=== PATIENT | female | born 1970 | race Hispanic/Latino ===

== ENCOUNTER 2019-03-10 13:51 | Observation (INO) | payer BC ==
[~2019-03-10] VITALS: Ht 154.9 cm; Wt 76.7 kg
[2019-03-10 14:35] LABS: BASOPHILS % (AUTO) 0.8 % (0.0-5.0); EOSINOPHILS % (AUTO) 3.3 % (0.0-8.0); LYMPHOCYTES % (AUTO) 22.5 % (21.0-51.0); MEAN CORPUSCULAR HEMOGLOBIN 18.7 pg (27.0-33.0); MEAN CORPUSCULAR HGB CONC 29.7 g/dL (32.0-36.0); MONOCYTES % (AUTO) 7.4 % (3.0-13.0); NUCLEATED RED BLOOD CELLS 0.1 % (0.0-0.19); PLATELET COUNT (AUTO) 403 K/uL (130-400); RED BLOOD CELL COUNT(AUTO) 3.31 MIL/uL (4.00-5.50); RED CELL DISTRIBUTION WIDTH 19.9 % (11.0-15.5)
[2019-03-10 14:45] LABS: HEMATOCRIT 20.9 % (36-48)
[2019-03-10 14:46] LABS: CREATININE 0.7 mg/dL (0.5-1.5); POTASSIUM 3.4 mmol/L (3.5-5.1)
[2019-03-10 14:48] LABS: INR 0.97 (0.85-1.15); PARTIAL THROMBOPLASTIN TIME 22.4 SEC (26.3-35.5); PROTHROMBIN TIME 10.2 SEC (9.6-11.6)
[2019-03-10 14:51] LABS: ALBUMIN 3.6 g/dL (3.5-5.0); BILIRUBIN,TOTAL 0.3 mg/dL (0.2-1.0); TOTAL PROTEIN, SERUM 7.1 g/dL (6.0-8.3)
[2019-03-10 16:13] LABS: APPEARANCE,URINE Clear (CLEAR); BILIRUBIN,URINE Negative (NEGATIVE); COLOR,URINE Yellow (YELLOW); GLUCOSE, URINE (UA) Negative (NEGATIVE); KETONES,URINE Negative (NEGATIVE); LEUKOCYTE ESTERASE ,URINE Trace (NEGATIVE); NITRATE,URINE Negative (NEGATIVE); OCCULT BLOOD,URINE Nonhemolyzed Trace (NEGATIVE); PH,URINE 8.5 (5.0-8.0); PROTEIN,URINE Negative (NEGATIVE)
[2019-03-10 16:16] LABS: HCG,QUAL RESULT NEGATIVE (NEGATIVE)
[2019-03-10 16:30] LABS: BACTERIA,URINE Few /HPF (None Seen); RBC,URINE 0-1 /HPF (0-1); WBC,URINE 0-1 /HPF (0-1)
[2019-03-10] MEDS ORDERED: ACETAMINOPHEN EXTRA STRENGTH 500 MG TABLET ONE (17:30)
[2019-03-10] MEDS ORDERED: ACETAMINOPHEN 325 MG TAB PO PRN (19:15)
[2019-03-10] MEDS ORDERED: ONDANSETRON HCL 4 MG/2 ML VIAL IV PRN (19:15)
[2019-03-10] MEDS ORDERED: SODIUM CHLORIDE 0.9% 250 ML IV ONE (20:39)
[2019-03-10] MEDS ORDERED: FAMOTIDINE/PF 20 MG/2 ML VIAL IV SCH (21:00)
[2019-03-10] MEDS ORDERED: FAMOTIDINE/PF 20 MG/2 ML VIAL IV ONE (21:37)
--- NOTE | 2019-03-10 23:15 | NUR ---
Patient received from ED: Patient came in Via Stretcher with Blood transfusion of PRBC infusing. Patient assisted to the bathroom to void with scant bloody discharges and clear yellow urine. Plan of care discussed with patient verbalizes understanding.
[2019-03-10 23:20] VITALS: BP 154/89
[2019-03-10] MEDS: ACETAMINOPHEN 325 MG TAB PO PRN (23:59)
[2019-03-11 00:15] VITALS: BP 148/89
[2019-03-11] MEDS ORDERED: LOSA1TAB37 PO (00:29)
[2019-03-11 02:27] LABS: HEMATOCRIT 21.5 % (36-48)
[2019-03-11 03:55] VITALS: BP 133/86
[2019-03-11] MEDS: SODIUM CHLORIDE 0.9% 1000ML 1,000 ML IV SCH ×2 (04:26→13:26)
[2019-03-11 07:50] VITALS: BP 139/77
--- NOTE | 2019-03-11 07:50 | NUR ---
PATIENT ASSESSED AND VITAL SIGNS WITHIN NORMAL LIMITS. WAS ASSISTED UP TO BATHROOM FOR C/O DIZZINESS DURING AMBULATION PRIOR TO SECOND UNIT OF BLOOD TRANSFUSION. TOLERATED ACTIVITY WELL AND DENIES ANY DIZZINESS. STATES FEELING BETTER AND PULSE AT THIS TIME IS 67BPM. PATIENT STABLE AND DENIES ANY FURTHER HEADACHE OR DIZZINESS WITH AMBULATION.
--- NOTE | 2019-03-11 08:15 | NUR ---
DR. MG CALLED AND MADE AWARE OF CONSULT AND LAST H/H NOT AVAILABLE. INFORMED OF TWO HOUR POST TRANSFUSION H/H AND INDICATED TO CALL AFTER RESULT IS AVAILABLE.
[2019-03-11 08:41] LABS: HEMATOCRIT 25.8 % (36-48)
--- NOTE | 2019-03-11 08:55 | NUR ---
DR. MG CALLED RE 2 HOUR H/H AND REPORTED A 8.3 HEMOGLOBIN AND WAS FINE WITH RESULTS. INDICATED WOULD BE IN LATER TO ASSESS PATIENT. PATIENT NOT BLEEDING THIS A.M. WHEN ASSISTED TO GO VOID.
[2019-03-11] MEDS ORDERED: POTASSIUM CHLORIDE 20 MEQ ERTAB PO SCH (11:00)
[2019-03-11 11:35] VITALS: BP 140/81
--- NOTE | 2019-03-11 14:26 | NUR ---
DR. MAGALY TORRES ROUNDED FOR SECOND TIME AND DISCHARGED PT ON IRON AND STOOL SOFTENER IF OKAY WITH OBGYN DOCTOR.
[2019-03-11 15:15] VITALS: BP 143/82
--- NOTE | 2019-03-11 16:15 | NUR ---
DR. MG ROUNDED AND DISCHARGED PATIENT TO HOME AND WILL FOLLOW UP IN HIS CLINIC ON THURSDAY, March AT 9:40AM. PATIENT STABLE AND WILL BE DISCHARGED ORDERED BY DR. MAGALY TORRES ON COLACE AND FERROUS SULFATE TWICE A DAY.
[2019-03-11] MEDS: ACETAMINOPHEN 325 MG TAB PO PRN (16:46)
--- NOTE | 2019-03-11 18:00 | NUR ---
DISCHARGE INSTRUCTIONS GIVEN AND SCRIPT FOR HOME MEDS GIVEN. PATIENT INSTRUCTED ON DOSAGE AND FREQUENCY.
--- NOTE | 2019-03-11 18:15 | NUR ---
PATIENT WAS TAKEN VIA W/C TO FAMILY [facility] AND WAS ACCOMPANIED BY HER SIGNIFICANT OTHER. PATIENT SHOWERED AND DENIES ANY FURTHER DIZZINESS. REINFORCED NEED TO FOLLOW UP WITH DR. MG ON THURSDAY AT 9:40AM.
[2019-03-11] MEDS ORDERED: FERROUS SULFATE 325 MG TABLET.DR PO SCH (21:00)
== END 2019-03-11 18:15 | disposition home or self-care (01) ==
LOC: EDH 13:51 → EDHIP 19:06 → WSH 23:15
PROVIDERS: ADMIT Internal Medicine; ATTEND Internal Medicine
DX: N92.1 Excessive and frequent menstruation with irregular cycle (principal); D25.9 Leiomyoma of uterus, unspecified; D62 Acute posthemorrhagic anemia; I10 Essential (primary) hypertension; R42 Dizziness and giddiness; Z79.899 Other long term (current) drug therapy
CPT/HCPCS: 36415 ×2; 36430 ×2; 76856; 80053; 81001; 81025; 82550; 84484; 85014 ×2; 85018 ×2; 85025; 85610; 85730; 86850; 86900; 86901; 86922 ×2; 93005; 96361; 96374; 99283; A4600; G0378 ×18; J3490 ×2; J7030; P9016 ×2

== ENCOUNTER 2019-08-26 10:37 | Observation (INO) | payer BC ==
[~2019-08-26] VITALS: Ht 156.2 cm; Wt 75.7 kg
[~2019-08-26 10:37] MED LIST: LOSA1TAB37 PO
[2019-08-26 11:38] LABS: CREATININE 0.8 mg/dL (0.5-1.5); POTASSIUM 3.6 mmol/L (3.5-5.1)
[2019-08-26 11:43] LABS: ALBUMIN 3.6 g/dL (3.5-5.0); BILIRUBIN,TOTAL 0.3 mg/dL (0.2-1.0); TOTAL PROTEIN, SERUM 7.1 g/dL (6.0-8.3)
[2019-08-26 11:59] LABS: BASOPHILS % (AUTO) 0.7 % (0.0-5.0); EOSINOPHILS % (AUTO) 3.3 % (0.0-8.0); HEMATOCRIT 24.9 % (36-48); LYMPHOCYTES % (AUTO) 22.8 % (21.0-51.0); MEAN CORPUSCULAR HEMOGLOBIN 18.8 pg (27.0-33.0); MEAN CORPUSCULAR HGB CONC 27.3 g/dL (32.0-36.0); MEAN CORPUSCULAR VOLUME 68.8 fL (79-99); MONOCYTES % (AUTO) 5.7 % (3.0-13.0); NEUTROPHILS % (AUTO) 63.4 % (40.0-77.0); NUCLEATED RED BLOOD CELLS 1.2 % (0.0-0.19); PLATELET COUNT (AUTO) 416 K/uL (130-400); RED BLOOD CELL COUNT(AUTO) 3.62 MIL/uL (4.00-5.50); RED CELL DISTRIBUTION WIDTH 18.8 % (11.0-15.5); WHITE BLOOD COUNT (AUTO) 5.8 K/uL (4.8-10.8)
[2019-08-26] MEDS ORDERED: FERROUS SULFATE 325 MG TABLET.DR PO SCH (13:45)
[2019-08-26] MEDS ORDERED: ONDANSETRON HCL 4 MG/2 ML VIAL IV PRN (14:00)
[2019-08-26] MEDS ORDERED: ACETAMINOPHEN 325 MG TAB PO PRN (14:00)
[2019-08-26 14:15] LABS: % IRON SATURATION 12.8 % (22-44)
[2019-08-26] MEDS ORDERED: SODIUM CHLORIDE 0.9% 250 ML IV ONE (14:15)
[2019-08-26 16:43] VITALS: BP 155/77
[2019-08-26 19:20] VITALS: BP 148/89
--- NOTE | 2019-08-26 19:35 | NUR ---
DR. MG ROUNDED AT THIS TIME FOR CONSULT REQUESTED BY DR. CARBAJAL. PATIENT IS SUPPOSE TO FOLLOW UP AN OUTPATIENT IN HIS CLINIC IN 3 WEEKS TO SCHEDULE SURGERY. PATIENT IS TO CONTINUE TAKING IRON ORDER UNTIL THEN. HOSPITALIST TO BE NOTIFIED OF CONSULT DONE AND DISCHARGE ORDER GIVEN.
[2019-08-26] MEDS ORDERED: FERR325T22 PO (20:38)
[2019-08-26] MEDS ORDERED: FAMOTIDINE 20MG TAB 20 MG TAB PO SCH (21:00)
--- NOTE | 2019-08-26 21:00 | NUR ---
DISCHARGE INST. GIVEN, PT. VERBALIZED UNDERSTANDING.
--- NOTE | 2019-08-26 21:22 | NUR ---
PT. DISCHARGED HOME. TAKEN TO CAR VIA WC BY KATHY (PCP). NO VAGINAL BLEEDING NOTED, DENIED PAIN AND DISCOMFORT. FAMILY MEMBERS ACCOMPANIED PT.
[2019-08-27] MEDS ORDERED: FERROUS SULFATE 325 MG TABLET.DR PO SCH (09:00)
== END 2019-08-26 21:22 | disposition home or self-care (01) ==
LOC: EDH 10:37 → EDHIP 13:46 → WSH 16:45
PROVIDERS: ADMIT Family Medicine; ATTEND Family Medicine
DX: D62 Acute posthemorrhagic anemia (principal); D50.0 Iron deficiency anemia secondary to blood loss (chronic); D25.9 Leiomyoma of uterus, unspecified; N92.0 Excessive and frequent menstruation with regular cycle; I10 Essential (primary) hypertension; Z79.899 Other long term (current) drug therapy
CPT/HCPCS: 36415; 36430; 80053; 82728; 83540; 83550; 85014; 85018; 85025; 86850; 86900; 86901; 86922 ×2; 99284; G0378 ×6; J7030; P9016

== ENCOUNTER 2020-07-21 21:56 | Emergency (ER) | payer BC ==
[~2020-07-21 21:56] MED LIST changes: +IRON PO; +LISI40TA4 PO; -LOSA1TAB37 PO
[2020-07-21] MEDS ORDERED: CLONIDINE HCL 0.1 MG TABLET ONE (22:19)
[2020-07-21] MEDS ORDERED: LORAZEPAM 2 MG/ML 1 ML VIAL ONE (22:20)
[2020-07-21 22:21] LABS: BASOPHILS % (AUTO) 0.5 % (0.0-5.0); EOSINOPHILS % (AUTO) 3.4 % (0.0-8.0); HEMATOCRIT 41.3 % (36-48); MEAN CORPUSCULAR HEMOGLOBIN 27.6 pg (27.0-33.0); MEAN CORPUSCULAR HGB CONC 32.7 g/dL (32.0-36.0); MEAN CORPUSCULAR VOLUME 84.5 fL (79-99); NEUTROPHILS % (AUTO) 65.5 % (40.0-77.0); PLATELET COUNT (AUTO) 348 K/uL (130-400); RED BLOOD CELL COUNT(AUTO) 4.89 MIL/uL (4.00-5.50); WHITE BLOOD COUNT (AUTO) 8.6 K/uL (4.8-10.8)
[2020-07-21] MEDS ORDERED: NIFEDIPINE ER 30 MG TAB PO ONE (22:34)
[2020-07-21 22:38] LABS: CREATININE 0.9 mg/dL (0.5-1.5); POTASSIUM 3.7 mmol/L (3.5-5.1)
[2020-07-21 22:43] LABS: BILIRUBIN,TOTAL 0.3 mg/dL (0.2-1.0); TOTAL PROTEIN, SERUM 7.8 g/dL (6.0-8.3)
[2020-07-21 22:50] LABS: INR 1.1 (0.85-1.15); PARTIAL THROMBOPLASTIN TIME 29.7 SEC (26.3-35.5); PROTHROMBIN TIME 11.8 SEC (9.6-11.6)
== END 2020-07-21 23:55 | disposition home or self-care (01) ==
LOC: EDH 21:56
DX: I10 Essential (primary) hypertension (principal); F41.0 Panic disorder [episodic paroxysmal anxiety]; Z79.899 Other long term (current) drug therapy; Z98.890 Other specified postprocedural states
CPT/HCPCS: 36415; 71045; 80053; 82550; 84484; 85025; 85610; 85730; 93005; 96374; 99285; J2060

== ENCOUNTER 2021-08-10 23:34 | Emergency (ER) | payer BC ==
[~2021-08-10] VITALS: Ht 157.5 cm; Wt 79.4 kg
[~2021-08-10 23:34] MED LIST changes: -LISI40TA4 PO; +LISI40TA9 PO
[2021-08-11] MEDS ORDERED: DiphenhydrAMINE HCL 50 MG/ML VIAL IV ONE (02:00)
[2021-08-11] MEDS ORDERED: KETOROLAC 30MG VIAL (30MG/ML) IV ONE (02:00)
[2021-08-11] MEDS ORDERED: 0.9%NACL 1000ML 1,000 ML IV ONE (02:00)
[2021-08-11] MEDS ORDERED: PROCHLORPERAZINE 10MG/2ML INJ IV ONE (02:00)
[2021-08-11 03:39] VITALS: BP 120/73
== END 2021-08-11 04:22 | disposition home or self-care (01) ==
LOC: EDH 23:34
DX: R51.9 Headache, unspecified (principal); R11.0 Nausea; I10 Essential (primary) hypertension; Z79.1 Long term (current) use of non-steroidal anti-inflammatories (NSAID); Z79.899 Other long term (current) drug therapy
CPT/HCPCS: 96361 ×2; 96374; 96375; 99284; J0780; J1200; J1885; J7030

== ENCOUNTER 2021-08-31 15:06 | Observation (INO) | payer BC ==
[~2021-08-31] VITALS: Ht 157.5 cm; Wt 82.3 kg
[2021-08-31] MEDS ORDERED: ASPIRIN 325MG TAB ONE (15:18)
[2021-08-31] MEDS ORDERED: NITROGLYCERIN 1GM OINT 1 INCH/1GM TD ONE ×2 (15:18→15:30)
[2021-08-31 15:28] LABS: BASOPHILS % (AUTO) 0.6 % (0.0-5.0); EOSINOPHILS % (AUTO) 3.3 % (0.0-8.0); HEMATOCRIT 40.3 % (36-48); LYMPHOCYTES % (AUTO) 21.7 % (21.0-51.0); MEAN CORPUSCULAR HEMOGLOBIN 28.2 pg (27.0-33.0); MEAN CORPUSCULAR HGB CONC 33.7 g/dL (32.0-36.0); MEAN CORPUSCULAR VOLUME 83.4 fL (79-99); MONOCYTES % (AUTO) 5.8 % (3.0-13.0); NEUTROPHILS % (AUTO) 67.7 % (40.0-77.0); PLATELET COUNT (AUTO) 316 K/uL (130-400); RED BLOOD CELL COUNT(AUTO) 4.83 MIL/uL (4.00-5.50); RED CELL DISTRIBUTION WIDTH 12.8 % (11.0-15.5)
[2021-08-31] MEDS ORDERED: LORAZEPAM 2 MG/ML 1 ML VIAL IVP ONE (15:30)
[2021-08-31] MEDS ORDERED: NITROGLYCERIN 0.4 MG SL TAB SL PRN ×2 (15:30→18:30)
[2021-08-31] MEDS ORDERED: ASPIRIN 325MG TAB PO ONE (15:30)
[2021-08-31 15:37] LABS: CREATININE 0.8 mg/dL (0.5-1.5); POTASSIUM 3.5 mmol/L (3.5-5.1)
[2021-08-31 15:47] LABS: ALBUMIN 3.9 g/dL (3.5-5.0); BILIRUBIN,TOTAL 0.4 mg/dL (0.2-1.0); TOTAL PROTEIN, SERUM 7.4 g/dL (6.0-8.3)
[2021-08-31] MEDS ORDERED: NITROGLYCERIN 1GM OINT 1 INCH/1GM TD SCH (18:30)
[2021-08-31] MEDS ORDERED: ONDANSETRON 4MG INJ IV PRN (18:30)
[2021-08-31] MEDS ORDERED: ACETAMINOPHEN 325 MG TAB PO PRN ×2 (18:30)
[2021-08-31 18:51] LABS: HEMOGLOBIN A1C 6.2 % (4.0-6.0)
[2021-08-31 18:52] LABS: CRP QUANTITATIVE 8.9 mg/L (0.00-9.0)
[2021-08-31] MEDS ORDERED: LORAZEPAM 2 MG/ML 1 ML VIAL ONE (18:56)
[2021-08-31 19:38] LABS: CHOLESTEROL 138 mg/dL (<200); HDL CHOLESTEROL 33 mg/dL (35-85); LDL DIRECT 86 mg/dL (0-99); TRIGLYCERIDES 182 mg/dL (30-200)
[2021-08-31 21:16] LABS: APPEARANCE,URINE Cloudy (CLEAR); BILIRUBIN,URINE Negative (NEGATIVE); COLOR,URINE Yellow (YELLOW); GLUCOSE, URINE (UA) Negative (NEGATIVE); KETONES,URINE Trace mg/dL (NEGATIVE); LEUKOCYTE ESTERASE ,URINE Trace (NEGATIVE); NITRATE,URINE Negative (NEGATIVE); OCCULT BLOOD,URINE Negative (NEGATIVE); PH,URINE 6.5 (5.0-8.0); PROTEIN,URINE Negative (NEGATIVE)
[2021-08-31 21:22] LABS: RBC,URINE 0-1 /HPF (0-1)
[2021-08-31 21:23] LABS: BACTERIA,URINE Few /HPF (None Seen); MUCUS,URINE Few LPF (None Seen); SQUAMOUS EPITHELIAL CELL,UR Moderate /HPF (0-2)
[2021-08-31 21:24] LABS: YEAST,URINE BUDDING Rare /HPF (None Seen)
[2021-08-31] MEDS: FAMOTIDINE 20MG TAB PO SCH (21:26)
[2021-08-31] MEDS: METOPROLOL TARTRATE 25 MG TAB PO SCH (21:26)
[2021-08-31] MEDS: NITROGLYCERIN 1GM OINT 1 INCH/1GM TD SCH (23:19)
[2021-09-01] VITALS: BP 155/83
[2021-09-01] MEDS ORDERED: IBUP-2070 PO (00:11)
[2021-09-01] MEDS ORDERED: METO25TA6 PO (00:11)
[2021-09-01] MEDS ORDERED: LOSA100T58 PO (00:11)
[2021-09-01] MEDS ORDERED: GUAI100S13 PO (00:11)
[2021-09-01 02:45] LABS: BASOPHILS % (AUTO) 0.7 % (0.0-5.0); EOSINOPHILS % (AUTO) 4.5 % (0.0-8.0); HEMATOCRIT 37.3 % (36-48); LYMPHOCYTES % (AUTO) 25.5 % (21.0-51.0); MEAN CORPUSCULAR HEMOGLOBIN 28.3 pg (27.0-33.0); MEAN CORPUSCULAR HGB CONC 32.7 g/dL (32.0-36.0); MEAN CORPUSCULAR VOLUME 86.5 fL (79-99); MONOCYTES % (AUTO) 7.2 % (3.0-13.0); NEUTROPHILS % (AUTO) 61.2 % (40.0-77.0); PLATELET COUNT (AUTO) 263 K/uL (130-400); RED BLOOD CELL COUNT(AUTO) 4.31 MIL/uL (4.00-5.50); RED CELL DISTRIBUTION WIDTH 12.6 % (11.0-15.5); WHITE BLOOD COUNT (AUTO) 7.5 K/uL (4.8-10.8)
[2021-09-01 04:00] VITALS: BP 155/86
[2021-09-01] MEDS: NITROGLYCERIN 1GM OINT 1 INCH/1GM TD SCH (06:53)
[2021-09-01] MEDS ORDERED: GUAIFENESIN SUGAR-FREE 100 MG/5 ML UDCUP PO PRN (07:30)
[2021-09-01] MEDS ORDERED: IBUPROFEN 600 MG TABLET PO SCH (07:30)
[2021-09-01] MEDS: METOPROLOL TARTRATE 25 MG TAB PO SCH (08:53)
[2021-09-01] MEDS: FAMOTIDINE 20MG TAB PO SCH (08:53)
[2021-09-01] MEDS ORDERED: ENOXAPARIN SODIUM 30 MG/0.3 ML SQ SCH (09:00)
[2021-09-01] MEDS ORDERED: LOSARTAN 100 MG TABLET PO SCH (09:00)
[2021-09-01 09:12] VITALS: BP 127/74
[2021-09-01] MEDS ORDERED: METOPROLOL TARTRATE 25 MG TAB PO SCH (21:00)
== END 2021-09-01 10:53 | disposition home or self-care (01) ==
LOC: EDH 15:06 → EDHIP 18:17 → 4BH 23:01
PROVIDERS: ADMIT Hospitalist; ATTEND Hospitalist
DX: M94.0 Chondrocostal junction syndrome [Tietze] (principal); R07.89 Other chest pain; F41.9 Anxiety disorder, unspecified; I10 Essential (primary) hypertension; E66.9 Obesity, unspecified; R79.89 Other specified abnormal findings of blood chemistry; R73.03 Prediabetes; Z68.34 Body mass index [BMI] 34.0-34.9, adult; Z90.710 Acquired absence of both cervix and uterus; Z79.899 Other long term (current) drug therapy
CPT/HCPCS: 36415 ×2; 71045; 80053; 80061; 81001; 82550 ×3; 83036; 83874 ×2; 84484 ×3; 85025 ×2; 85651; 86140; 93005 ×2; 96372; 96374; 99284; G0378 ×17; J1650; J2060

== ENCOUNTER 2022-07-02 01:38 | Emergency (ER) | payer BC ==
[~2022-07-02 01:38] MED LIST changes: +GUAI100S13 PO; +IBUP-2070 PO; -IRON PO; -LISI40TA9 PO; +LOSA100T58 PO; +METO25TA6 PO
[2022-07-02] MEDS ORDERED: KETOROLAC 30MG VIAL (30MG/ML) ONE (01:44)
[2022-07-02] MEDS ORDERED: ONDANSETRON 4MG INJ ONE (01:44)
[2022-07-02 01:51] LABS: BASOPHILS % (AUTO) 0.5 % (0.0-5.0); EOSINOPHILS % (AUTO) 3.8 % (0.0-8.0); LYMPHOCYTES % (AUTO) 24.3 % (21.0-51.0); MEAN CORPUSCULAR HGB CONC 34.1 g/dL (32.0-36.0); MEAN CORPUSCULAR VOLUME 85.2 fL (79-99); MONOCYTES % (AUTO) 6.3 % (3.0-13.0); NEUTROPHILS % (AUTO) 64.7 % (40.0-77.0); PLATELET COUNT (AUTO) 278 K/uL (130-400); RED BLOOD CELL COUNT(AUTO) 4.58 MIL/uL (4.00-5.50); RED CELL DISTRIBUTION WIDTH 12.8 % (11.0-15.5); WHITE BLOOD COUNT (AUTO) 7.5 K/uL (4.8-10.8)
[2022-07-02 02:00] LABS: CREATININE 1.1 mg/dL (0.5-1.5); POTASSIUM 3.4 mmol/L (3.5-5.1)
[2022-07-02] MEDS ORDERED: ONDANSETRON 4MG INJ IVP ONE (02:00)
[2022-07-02] MEDS ORDERED: KETOROLAC 30MG VIAL (30MG/ML) IVP ONE (02:00)
[2022-07-02 02:05] LABS: ALBUMIN 3.9 g/dL (3.5-5.0); TOTAL PROTEIN, SERUM 7.7 g/dL (6.0-8.3)
[2022-07-02] MEDS ORDERED: SALS500T16 PO (02:54)
[2022-07-02 03:06] VITALS: BP 149/86
== END 2022-07-02 03:05 | disposition home or self-care (01) ==
LOC: EDH 01:38
DX: M94.0 Chondrocostal junction syndrome [Tietze] (principal); F41.9 Anxiety disorder, unspecified; I10 Essential (primary) hypertension; I49.8 Other specified cardiac arrhythmias; Z79.1 Long term (current) use of non-steroidal anti-inflammatories (NSAID)
CPT/HCPCS: 99284; 71045; 84484; 80053; 85025; 36415; 93005; J2405; J1885

== ENCOUNTER 2023-12-27 17:48 | Emergency (ER) | payer OTHER ==
[~2023-12-27] VITALS: Ht 157.5 cm; Wt 75.3 kg
[~2023-12-27 17:48] MED LIST changes: +ASPI-1197 PO; +CYCL10TA16 PO; +HYDR50CA50 PO; -LOSA100T58 PO; +LOSA100T59 PO; +NAPR-1192 PO; +NITR0.4T50 SL; +SALS500T16 PO
[2023-12-27 19:35] LABS: HEMATOCRIT 43.5 % (36-48); MEAN CORPUSCULAR VOLUME 82.2 fL (79-99); PLATELET COUNT (AUTO) 327 K/uL (130-400); RED BLOOD CELL COUNT(AUTO) 5.29 MIL/uL (4.00-5.50); RED CELL DISTRIBUTION WIDTH 12.8 % (11.0-15.5); WHITE BLOOD COUNT (AUTO) 8.8 K/uL (4.8-10.8)
[2023-12-27 19:37] LABS: BASOPHILS # (AUTO) 0.04 K/uL (0.00-0.20); BASOPHILS % (AUTO) 0.5 % (0.0-5.0); EOSINOPHILS # (AUTO) 0.19 K/uL (0.00-0.70); EOSINOPHILS % (AUTO) 2.2 % (0.0-8.0); IMMATURE GRANULOCYTE ABSOLUTE 0.02 K/uL (0-1); LYMPHOCYTES # (AUTO) 1.9 K/uL (1.0-4.8); MONOCYTES # (AUTO) 0.7 K/uL (0.1-1.0); MONOCYTES % (AUTO) 7.7 % (3.0-13.0); NEUTROPHILS # (AUTO) 5.9 K/uL (1.8-7.7); NEUTROPHILS % (AUTO) 67.4 % (40.0-77.0)
[2023-12-27] MEDS ORDERED: IBUP-2077 PO (19:42)
[2023-12-27] MEDS ORDERED: AMOX1TAB16 PO (19:42)
[2023-12-27 19:44] LABS: POTASSIUM 3.5 mmol/L (3.5-5.1)
[2023-12-27 19:48] LABS: ALBUMIN 4.1 g/dL (3.5-5.0); BILIRUBIN,TOTAL 0.3 mg/dL (0.2-1.0); TOTAL PROTEIN, SERUM 8.2 g/dL (6.0-8.3)
[2023-12-27] MEDS: CYCLOBENZAPRINE HCL 10 MG TABLET PO ONE (20:00)
[2023-12-27] MEDS: AMOX/CLAV 875/125MG TAB PO ONE (20:00)
[2023-12-27] MEDS: KETOROLAC 60 MG VIAL (30MG/ML) IM ONE (20:08)
[2023-12-27] MEDS: TETANUS/DIPHTHERIA TOXOID [ADULT] 0.5 ML VIAL IM ONE (20:18)
[2023-12-27 20:29] VITALS: BP 138/74; PULSE 78; RESP 18; O2SAT 98
== END 2023-12-27 20:42 | disposition home or self-care (01) ==
LOC: EDH 17:48
DX: S30.0XXA Contusion of lower back and pelvis, initial encounter (principal); S70.312A Abrasion, left thigh, initial encounter; I10 Essential (primary) hypertension; W18.30XA Fall on same level, unspecified, initial encounter; Y93.89 Activity, other specified; Y92.89 Other specified places as the place of occurrence of the external cause; Y99.8 Other external cause status
CPT/HCPCS: 99284; 80053; 85025; 36415; 90714; 72100; 96372; 90471; J1885

== ENCOUNTER 2024-11-07 16:07 | Emergency (ER) | payer SELFPAY ==
[~2024-11-07] VITALS: Ht 157.5 cm; Wt 78.5 kg
[~2024-11-07 16:07] MED LIST changes: +AMOX1TAB16 PO; +IBUP-2077 PO
--- NOTE | 2024-11-07 17:36 | ERN ---
ED Note History of Present Illness Stated Complaint: CHEST PRESSURE, NAUSEA Chief Complaint: Chest Wall Pain Time Seen by MD: 16:30 Time Seen by Midlevel: 16:30 Dictation: The patient is a 54-year-old female with a history of hypertension, hysterectomy who presents to the emergency department with complaints of chest pain onset a week ago. Patient reports chest pains constant. Reports that last night she started developing nausea nonbloody vomiting. Denies any fevers, denies any cough, denies any abdominal pain or shortness of breath. Allergies: Coded Allergies: No Known Drug Allergies (Verified Allergy, Unknown, 03/10/19) Home Meds Active Scripts Ibuprofen (Ibuprofen 800 mg Tab) 800 Mg Tab, 800 MG PO Q8H PRN for fever or pain, #30 TAB 0 Refills Prov:RAKESH BLANC NP 12/27/23 Amoxicillin/Potassium Clav (Amox Tr-K Clv 875-125 mg Tab) 875 Mg-125 Mg Tablet, 1 EACH PO BID for 7 Days, #14 TAB 0 Refills Prov:RAKESH BLANC NP 12/27/23 Hydroxyzine Pamoate (Hydroxyzine Pamoate) 50 Mg Capsule, 50 MG PO QIDP PRN for ANXIETY/AGITATION, #30 CAP 2 Refills Prov:RADHA HOOVER Sr., MD 04/01/23 Nitroglycerin (Nitroglycerin) 0.4 Mg Tab.subl, 0.4 MG SL AD, #100 TAB.SL 2 Refills 1 tab sublingual every 5 minutes as needed for pain; max of 3 tablets over the course of 15 minutes. If you have chest pain then call 911 Prov:RADHA HOOVER Sr., MD 04/01/23 Aspirin (Aspirin) 81 Mg Tab.chew, 81 MG PO DAILY, #30 TAB.CHEW 2 Refills Prov:RADHA HOOVER Sr., MD 04/01/23 Naproxen (Naproxen) 375 Mg Tablet, 375 MG PO BID for 10 Days, #20 TAB 2 Refills Prov:RADHA HOOVER Sr., MD 02/24/23 Cyclobenzaprine HCl (Flexeril) 10 Mg Tab, 10 MG PO TID for muscle sstiffness, #14 TAB 2 Refills Prov:RADHA HOOVER Sr., MD 02/24/23 Salsalate (Salsalate) 500 Mg Tablet, 500 MG PO TID for 10 Days, #30 TAB Prov:LISE CASILLAS MD 07/02/22 Reported Medications Guaifenesin (Guaifenesin) 100 Mg/5 Ml Liq, 100 MG PO [id number] PRN for COUGH/COLD SYMPTOMS, ML 09/01/21 Ibuprofen (Ibuprofen) 600 Mg Tablet, 600 MG PO Q6H for PAIN, TAB 09/01/21 Metoprolol Tartrate (Metoprolol Tartrate) 25 Mg Tablet, 25 MG PO HS, TAB 09/01/21 Losartan Potassium (Losartan Potassium) 100 Mg Tablet, 100 MG PO DAILY, TAB 09/01/21 Past Medical History Past Medical History: Hypertension Surgical History: None, Family History: Negative Social History: Negative, Lives with family History: Not Applicable RN Note Reviewed/Agreed w/PFSH: Yes Review of System Dictation Constitutional: Negative for fever,chills, and weight loss Eyes: Negative for injury, pain,redness, and discharge ENT: Negative for injury,pain or swelling Cardiovascular: Negative for palpitations, and edema positive for chest pain Respiratory: Negative for shortness of breath, cough, and wheezing, Abdomen/GI: Negative for abdominal pain, vomiting, diarrhea, and constipation positive for nausea Back: Negative for injury and pain : Negative for injury, bleeding and discharge MS/Extremity: Negative for injury and deformity Skin: Negative for rash, and discoloration Neuro: Negative for headache, weakness, numbness, tingling, and seizure Psych: Negative for suicide ideation, homicidal ideation, and hallucinations Initial Vital Sign VS Vital Signs Date Time Temp Pulse Resp B/P (MAP) Pulse Ox O2 Delivery O2 Flow Rate FiO2 11/07/24 16:08 98.8 72 16 178/116 98 Room Air 0 11/07/24 18:36 21 Physical Exam Dictation Vital Signs reviewed General Appearance: Alert, oriented x 3, no acute distress, well developed, nourished. Head and Face: non-traumatic. Eyes: PERRL, pink conjunctivas, eyelid no trauma, anterior chamber with arcus senilis. Ears: Pinnas intact and no signs of trauma or erythema ear canals clear and no discharge TM no erythema Nose: No discharge, no bleeding. Oropharynx: Mouth normal, tongue pink. pharynx clear,no erythema, tonsils no exudates, no abscesses noted, mucous membrane moist Neck: Supple, non-tender, no thyromegaly, no masses, no JVD, no bruits Breast:Deferred Chest:tenderness, no crepitus, no paradoxical movement, no retractions Lungs:Clear, well-ventilated, symmetric, no rales, no wheezing, no rhonchi, no stridor, good breath sounds bilaterally Heart: Regular rate, regular rhythm, no murmur, no gallops Vascular: no peripheral edema, Abdomen: Soft, positive bowel sounds, nondistended, no guarding, nontender, no rebound, no masses no hepatomegaly, no splenomegaly, no Saavedra's sign, no hernias. Rectal: Deferred Genital: Deferred Neurological: Normal speech, motor function intact, sensory function intact Musculoskeletal: Neck nontender, full range of motion, back nontender, full range of motion, Extremities: nontender, full range of motion Skin: Color pink, dry, no turgor, no rash, no lacerations, no abrasions, no contusions. Lymphatic: Deferred Results (Laboratory/Radiology) Laboratory/Radiology Laboratory Tests Test 11/07/24 18:48 11/07/24 20:03 11/07/24 21:00 White Blood Count 7.2 K/uL (4.8-10.8) Red Blood Count 5.45 MIL/uL (4.00-5.50) Hemoglobin 14.8 g/dL (12.0-16.0) Hematocrit 45.8 % (36-48) Mean Corpuscular Volume 84.0 fL (79-99) Mean Corpuscular Hemoglobin 27.2 pg (27.0-33.0) Mean Corpuscular Hemoglobin Concent 32.3 g/dL (32.0-36.0) Red Cell Distribution Width 13.0 % (11.0-15.5) Platelet Count 316 K/uL (130-400) Mean Platelet Volume 10.7 fL (7.5-10.5) H Immature Granulocyte % (Auto) 0.4 % (0-1) Neutrophils (%) (Auto) 63.2 % (40.0-77.0) Lymphocytes (%) (Auto) 27.6 % (21.0-51.0) Monocytes (%) (Auto) 5.7 % (3.0-13.0) Eosinophils (%) (Auto) 2.5 % (0.0-8.0) Basophils (%) (Auto) 0.6 % (0.0-5.0) Neutrophils # (Auto) 4.6 K/uL (1.8-7.7) Lymphocytes # (Auto) 2.0 K/uL (1.0-4.8) Monocytes # (Auto) 0.4 K/uL (0.1-1.0) Eosinophils # (Auto) 0.18 K/uL (0.00-0.70) Basophils # (Auto) 0.04 K/uL (0.00-0.20) Absolute Immature Granulocyte (auto 0.03 K/uL (0-1) Nucleated Red Blood Cells 0.0 % (0.0-0.19) Sodium Level 142 mmol/L (136-145) Potassium Level 3.7 mmol/L (3.5-5.1) Chloride Level 103 mmol/L (101-111) Carbon Dioxide Level 32 mmol/L (21-32) Blood Urea Nitrogen 10 mg/dL (7-18) Creatinine 0.8 mg/dL (0.5-1.0) Glomerular Filtration Rate Calc 89 mL/min (>90) Random Glucose 89 mg/dL (70-105) Total Calcium 9.4 mg/dL (8.5-10.1) Magnesium Level 1.90 mg/dL (1.80-2.40) Total Creatine Kinase 56 U/L (21-232) Troponin I High Sensitivity 5 ng/L (4-50) 6 ng/L (4-50) B-Type Natriuretic Peptide < 5 pg/mL (0-100) Lipase 42 U/L (16-77) Urine Color YELLOW (YELLOW) Urine Appearance CLOUDY (CLEAR) H Urine pH 5.5 (5.0-8.0) Urine Specific Seanor 1.020 (1.001-1.031) Urine Protein 20 mg/dL (NEGATIVE) H Urine Glucose (UA) NEGATIVE mg/dL (NEGATIVE) Urine Ketones NEGATIVE mg/dL (NEGATIVE) Urine Occult Blood +- (TRACE) (NEGATIVE) H Urine Nitrate NEGATIVE (NEGATIVE) Urine Bilirubin NEGATIVE mg/dL (NEGATIVE) Urine Urobilinogen 0.2 mg/dL (0.2-1.0) Urine Leukocyte Esterase 500 Nena/uL (NEGATIVE) H Urine RBC 6-10 /HPF (0-1) H Urine WBC 11-25 /HPF (0-1) H Urine Squamous Epithelial Cells MANY /HPF (0-2) Urine Bacteria RARE /HPF (None Seen) REASON: cp ORDERING PHYSICIAN: DEMI MARTINEZ PROCEDURE: CXR1VW - CHEST 1VW PORTABLE CHEST RADIOGRAPH INDICATION: cp COMPARISON: 04/01/2023 FINDINGS: Heart size is normal. The pulmonary vascularity and mark appear normal. No abnormal pulmonary parenchymal opacity or consolidation identified. No significant pleural effusion noted. No pneumothorax detected. IMPRESSION: No radiographic evidence for any acute cardiopulmonary process. Labs Reviewed?: Yes EKG: (+) rhythm (Sinus rhythm) EKG Comment: Date:11/07/2024 Time:160 Ventricular rate:76 [place] interval:142 QRS duration:90 QT/QTc:397 EKG interpretation: Sinus rhythm Reviewed by ED Attending no STEMI Date:11/07/2024 Time:2043 Ventricular rate:61 [place] interval:139 QRS duration:79 QT/QTc:408 EKG interpretation: Sinus rhythm Reviewed by ED Attending no STEMI ED Course ED Course Orders Procedure Category Date Status Time Cbc With Differential LAB 11/07/24 Complete 16:40 B-Type Natriuretic LAB 11/07/24 Complete Peptide 16:40 Chest 1vw RAD 11/07/24 Resulted 16:40 12 Lead Ekg Tracing- EKG 11/07/24 Complete Technical 16:40 Nitroglycerin 1gm PHA 11/07/24 Complete Oint (Nitroglycerin 1g 17:00 Ondansetron 4mg Inj PHA 11/07/24 Complete (Zofran 4mg Inj) 17:00 Magnesium LAB 11/07/24 Complete 16:40 Creatine Kinase, Total LAB 11/07/24 Complete 16:40 Troponin I High LAB 11/07/24 Complete Sensitivity 16:40 Aspirin 325mg Tab PHA 11/07/24 Complete (Aspirin 325mg Tab) 17:00 Urinalysis Profile LAB 11/07/24 Complete 16:40 Basic Metabolic Panel LAB 11/07/24 Complete 16:40 Lipase LAB 11/07/24 Complete 16:40 Pantoprazole 40mg Inj PHA 11/07/24 Complete (Protonix 40mg Inj 17:00 Troponin I High LAB 11/07/24 Complete Sensitivity 19:29 Ketorolac PHA 11/07/24 Complete Tromethamine 30mg/Ml 20:30 Hydralazine 20mg Inj PHA 11/07/24 Complete (Apresoline 20mg In 20:30 12 Lead Ekg Tracing- EKG 11/07/24 Complete Technical 20:31 Culture Urine JOHNNY 11/07/24 In Process 21:15 Ceftriaxone 1g Vial PHA 11/07/24 Complete (Rocephine 1g Inj) 21:30 Acetaminophen 500mg PHA 11/07/24 Complete Tab (Tylenol 500mg T 21:30 Current Medications Medications (Trade) Dose Ordered Sig/Anneliese Route PRN Reason Start Time Stop Time Status Last Admin Dose Admin Acetaminophen (TYLenol 500MG TAB) 1,000 mg ONCE ONCE PO 11/07/24 21:30 11/07/24 21:31 DC 11/07/24 21:40 Aspirin (Aspirin 325mg Tab) 325 mg ONCE PO 11/07/24 17:00 11/07/24 22:00 DC 11/07/24 18:49 Ceftriaxone Sodium (ROCEphine 1G INJ) 1 gm ONCE ONCE IVPB 11/07/24 21:30 11/07/24 21:31 DC 11/07/24 21:40 Hydralazine HCl (APRESOLine 20MG INJ) 10 mg ONCE ONCE IV 11/07/24 20:30 11/07/24 20:31 DC Ketorolac Tromethamine (toRADol) 30 mg ONCE ONCE IVP 11/07/24 20:30 11/07/24 20:31 DC 11/07/24 20:35 Nitroglycerin (Nitroglycerin 1gm Oint) 1 inch ONCE TD 11/07/24 17:00 11/07/24 22:00 DC 11/07/24 18:49 Ondansetron HCl (zoFRAN 4MG INJ) 4 mg ONCE IVP 11/07/24 17:00 11/07/24 22:00 DC 11/07/24 18:49 Pantoprazole Sodium (PROTonix 40MG INJ) 40 mg ONCE IVP 11/07/24 17:00 11/07/24 22:00 DC 11/07/24 18:49 Vital Signs Date Time Temp Pulse Resp B/P (MAP) Pulse Ox O2 Delivery O2 Flow Rate FiO2 11/07/24 20:33 98.4 80 17 141/94 98 Room Air* 0 21 11/07/24 18:36 98.4 70 17 175/111 96 Room Air* 0 21 11/07/24 16:08 98.8 72 16 178/116 98 Room Air 0 HEART Score Response (Comments) Value History: Low suspicion (0) 0 EKG: Normal 0 Age: 45-65yrs (+1) 1 Risk Factors: 1-2 risk factors (+1) 1 Initial Troponin: Normal limit (0) 0 Total 2 Medical Decision Making MDM The patient is a 54-year-old female with a history of hypertension, hysterectomy who presents to the emergency department with complaints of chest pain onset a week ago. Patient reports chest pains constant. Reports that last night she started developing nausea nonbloody vomiting. Denies any fevers, denies any co ugh, denies any abdominal pain or shortness of breath. CBC showed no leukocytosis, no anemia, chemistry showed no electrolyte im balance, negative troponin x2. chest x-ray with no acute pathology. EKG with normal sinus rhythm. Patient with low risk for cardiac etiology. Appears pain more related to musculoskeletal due to tenderness upon palpation. Patient reports improvement in chest pain with medications. Instructed to follow up with PCP. Urinalysis positive for leukocyte esterase. Patient will be treated with the antibiotics. Patient in no acute distress, nontoxic appearance, nontender abdomen.. Stable vital signs. Differential diagnosis: ACS, costochondritis, gastritis, electrolyte imbalance, pancreatitis Need for hospitalization: Patient does not meet criteria for hospitalization. There are no social concerns with this patient. DX & DISP Disposition: Discharge Departure Impression: Primary Impression: Costochondritis, acute Additional Impressions: UTI (urinary tract infection), Chest pain with low risk for cardiac etiology, Uncontrolled hypertension Condition: Stable Scripts Ondansetron (Ondansetron Odt) 4 Mg Tab.rapdis 4 MG PO Q6HPRN PRN for nausea, #16 TAB 0 Refills Prov: DEMI MARTINEZ PORTABLE TRACKMAN 11/07/24 Pantoprazole Sodium (Pantoprazole Sodium) 20 Mg Tablet.dr 1 TAB PO DAILY for 30 Days, #30 TAB 0 Refills Prov: DEMI MARTINEZ PORTABLE TRACKMAN 11/07/24 Ibuprofen (Ibuprofen) 600 Mg Tablet 600 MG PO Q6H PRN for PAIN, #10 TAB Prov: DEMI MARTINEZ PORTABLE TRACKMAN 25 Nitrofurantoin Monohyd/M-Cryst (Macrobid 100 mg Capsule) 100 Mg Capsule 1 CAP PO BID for 5 Days, #10 CAP 0 Refills Prov: DEMI MARTINEZ 11/07/24 Additional Instructions: Please follow up with your primary doctor in 1-2 days. Please return to ER if symptoms worsen. Take medications as prescribed. FOLLOW-UP WITH PRIMARY CARE PROVIDER IN 1 TO 2 DAYS. TAKE MEDICATIONS DIRECTED HERE IN THE EMERGENCY ROOM. OKAY TO CONTINUE HOME MEDICATIONS UNLESS OTHERWISE DISCUSSED DURING YOUR VISIT IN THE EMERGENCY ROOM TODAY. RETURN TO YOUR NEAREST EMERGENCY ROOM IF SYMPTOMS WORSEN OR IF THERE IS NO IMPROVEMENT. CALL 911 IF YOU NEED IMMEDIATE ASSISTANCE. TAKE TYLENOL OR MOTRIN [id number] NEEDED AND IF NO CONTRAINDICATIONS ARE PRESENT. INCREASE ORAL HYDRATION. A WOUND CULTURE OR URINE CULTURE WAS ORDERED HERE IN THE EMERGENCY ROOM DEPARTMENT PLEASE FOLLOW-UP WITH PRIMARY CARE PROVIDER AND ADVISE THEM TO GET REPEAT PORTS FROM OUR FACILITY. IF YOU HAD ANY MARTIR WRAP/SPLINTS THAT WERE APPLIED HERE, PLEASE DO NOT REMOVE THEM UNTIL YOU SEE YOUR PRIMARY CARE OR SPECIALTY. Referrals: WILLIAM HOWELL (PCP) Time of Disposition: 22:08 I have reviewed the case, and I agree with, Diagnosis and Plan DEMI MARTINEZ Nov 07, 2024 17:36
--- NOTE | 2024-11-07 17:57 | EKG ---
[facility] Test Date: 2024-11-07 Test Time: 16:08:51 Pat Name: VALERIE COLLINS Department: ED Room: Gender: F Customer Service Sales Associate: [id number] : 1970 Requested By: DEMI MARTINEZ Order Number: [id number] Reading MD: Nishant Perea Measurements Intervals [place] Rate: 76 P: 34 CT: 142 QRS: -9 QRSD: 90 T: 5 QT: 397 QTc: 446 Interpretive Statements Sinus rhythm Anterior Q waves, possibly due to LVH LEFT VENTRICULAR HYPERTROPHY by voltage T wave flattening Compared to ECG 04/01/2023 15:13:43 Left ventricular hypertrophy now present Q waves now present Electronically Signed On 11-09-2024 07:33:43 BUS TROLLEY AND TAXI INSTRUCTOR by Nishant Perea Please click the below link to view image of tracing.
[2024-11-07] MEDS: NITROGLYCERIN 1GM OINT 1 INCH/1GM TD SCH (18:49)
[2024-11-07] MEDS: ondanSETRON 4MG INJ IVP SCH (18:49)
[2024-11-07] MEDS: ASPIRIN 325MG TAB PO SCH (18:49)
[2024-11-07] MEDS: PANTOPrazole 40 MG/VIAL IVP SCH (18:49)
--- NOTE | 2024-11-07 18:57 | HMCIMG ---
PORTABLE CHEST RADIOGRAPH INDICATION: cp COMPARISON: 04/01/2023 FINDINGS: Heart size is normal. The pulmonary vascularity and mark appear normal. No abnormal pulmonary parenchymal opacity or consolidation identified. No significant pleural effusion noted. No pneumothorax detected. IMPRESSION: No radiographic evidence for any acute cardiopulmonary process.
[2024-11-07 19:04] LABS: BASOPHILS # (AUTO) 0.04 K/uL (0.00-0.20); BASOPHILS % (AUTO) 0.6 % (0.0-5.0); EOSINOPHILS # (AUTO) 0.18 K/uL (0.00-0.70); EOSINOPHILS % (AUTO) 2.5 % (0.0-8.0); HEMATOCRIT 45.8 % (36-48); IMMATURE GRANULOCYTE ABSOLUTE 0.03 K/uL (0-1); LYMPHOCYTES % (AUTO) 27.6 % (21.0-51.0); MEAN CORPUSCULAR HEMOGLOBIN 27.2 pg (27.0-33.0); MEAN CORPUSCULAR HGB CONC 32.3 g/dL (32.0-36.0); MONOCYTES # (AUTO) 0.4 K/uL (0.1-1.0); MONOCYTES % (AUTO) 5.7 % (3.0-13.0); NEUTROPHILS # (AUTO) 4.6 K/uL (1.8-7.7); NEUTROPHILS % (AUTO) 63.2 % (40.0-77.0); PLATELET COUNT (AUTO) 316 K/uL (130-400); RED BLOOD CELL COUNT(AUTO) 5.45 MIL/uL (4.00-5.50); WHITE BLOOD COUNT (AUTO) 7.2 K/uL (4.8-10.8)
[2024-11-07 19:16] LABS: CREATININE 0.8 mg/dL (0.5-1.0); POTASSIUM 3.7 mmol/L (3.5-5.1)
[2024-11-07 19:25] LABS: MAGNESIUM 1.9 mg/dL (1.80-2.40)
[2024-11-07 20:05] LABS: B-TYPE NATRIURETIC PEPTIDE < 5 pg/mL (0-100)
[2024-11-07] MEDS ORDERED: hydrALAZine 20MG/ML VIAL IV ONE (20:30)
[2024-11-07] MEDS: ketOROlac 30MG VIAL (30MG/ML) IVP ONE (20:35)
--- NOTE | 2024-11-07 20:46 | EKG ---
[facility] Test Date: 2024-11-07 Test Time: 20:44:03 Pat Name: VALERIE COLLINS Department: ED Room: Gender: F Business Process Specialist: [id number] : 1970 Requested By: DEMI MARTINEZ Order Number: [id number] Reading MD: Nishant Perea Measurements Intervals [place] Rate: 61 P: 40 [place]: 139 QRS: 1 QRSD: 79 T: 19 QT: 408 QTc: 411 Interpretive Statements Sinus rhythm Compared to ECG 11/07/2024 16:08:51 Left ventricular hypertrophy no longer present Q waves no longer present Electronically Signed On 11-09-2024 07:35:34 MARITIME ENGINEER by Nishant Perea Please click the below link to view image of tracing.
[2024-11-07 21:14] LABS: APPEARANCE,URINE CLOUDY (CLEAR); BILIRUBIN,URINE NEGATIVE (NEGATIVE); COLOR,URINE YELLOW (YELLOW); GLUCOSE, URINE (UA) NEGATIVE (NEGATIVE); KETONES,URINE NEGATIVE (NEGATIVE); LEUKOCYTE ESTERASE ,URINE 500 Leu/uL (NEGATIVE); NITRATE,URINE NEGATIVE (NEGATIVE); PH,URINE 5.5 (5.0-8.0); PROTEIN,URINE 20 mg/dL (NEGATIVE); UROBILINOGEN,URINE 0.2 mg/dL (0.2-1.0)
[2024-11-07 21:15] LABS: ADD UA MICROSCOPIC YES
[2024-11-07 21:26] LABS: BACTERIA,URINE RARE /HPF (None Seen); MUCUS,URINE FEW LPF (None Seen); SQUAMOUS EPITHELIAL CELL,UR MANY /HPF (0-2)
[2024-11-07] MEDS: cefTRIAXone 1G VIAL IVPB ONE (21:40)
[2024-11-07] MEDS: acetaMINOPHEN 500 MG TABLET PO ONE (21:40)
[2024-11-07] MEDS ORDERED: IBUP-2070 PO (22:10)
[2024-11-07] MEDS ORDERED: PANT20TA18 PO (22:10)
[2024-11-07] MEDS ORDERED: NITR100C4 PO (22:10)
[2024-11-07] MEDS ORDERED: ONDA-243 PO (22:10)
[2024-11-07 22:18] VITALS: BP 147/90; PULSE 80; RESP 17; TEMP 98.4; O2SAT 98
== END 2024-11-07 22:27 | disposition home or self-care (01) ==
LOC: EDH 16:07
DX: M94.0 Chondrocostal junction syndrome [Tietze] (principal); N39.0 Urinary tract infection, site not specified; I10 Essential (primary) hypertension; Z79.82 Long term (current) use of aspirin; Z79.899 Other long term (current) drug therapy
CPT/HCPCS: 99285; 96365; 96375; 71045; 82550; 83735; 84484 ×2; 80048; 83880; 83690; 85025; 87086; 81001; 36415; 93005 ×2; J1885; J0696; J2405; J2470